=== PATIENT | female | born 1985 | race African-American/Black ===

== ENCOUNTER 2018-05-08 02:12 | Emergency (ER) | payer MEDICAID ==
[~2018-05-08] VITALS: Ht 162.6 cm; Wt 61.0 kg
[2018-05-08 03:59] LABS: CLARITY URINE TURBID (CLEAR); COLOR URINE RED (YELLOW); KETONES URINE NEGATIVE (NEGATIVE); LEUKOCYTE ESTERASE URINE 1+ (NEGATIVE); NITRITE URINE NEGATIVE (NEGATIVE); OCCULT BLOOD URINE 3+ (NEGATIVE); PROTEIN URINE 2+ (NEGATIVE); SPECIFIC GRAVITY URINE 1.021 (1.005-1.030); UROBILINOGEN URINE 0.2 E.U./dL (0.2-1.0)
[2018-05-08 05:34] LABS: BASOPHILS % 0.5 % (0.0-2.0); EOSINOPHILS % 0.6 % (0.0-5.0); HEMATOCRIT. 26.5 % (36.0-48.0); LYMPHOCYTES % 37.2 % (20.0-50.0); MEAN CORPUSCULAR HEMOGLOBIN 29.2 pg (28.0-32.0); MEAN CORPUSCULAR VOLUME 86.1 fL (81.0-99.0); MEAN PLATELET VOLUME 10.2 fl (7.4-10.4); MONOCYTES % 9.9 % (2.0-8.0); NEUTROPHILS % 51.8 % (40.0-76.0); PLATELET 133 x1000/uL (130-400); RED BLOOD CELL COUNT 3.08 mill/uL (4.2-5.4); RED CELL DISTRIBUTION WIDTH 12.7 % (11.6-14.6)
[2018-05-08 05:40] LABS: CHLORIDE 107 mEq/L (98-107)
[2018-05-08 05:52] LABS: B-HCG QUANTITATIVE < 1 mIU/mL (<3)
[2018-05-08 06:41] VITALS: BP 110/74
== END 2018-05-08 06:43 | disposition home or self-care (01) ==
LOC: ER 02:59
DX: N92.0 Excessive and frequent menstruation with regular cycle (principal); D64.9 Anemia, unspecified; G40.909 Epilepsy, unspecified, not intractable, without status epilepticus
CPT/HCPCS: 36415; 80048; 81003; 81025; 84702; 85025; 99284; Z7610

== ENCOUNTER 2018-10-13 06:53 | Emergency (ER) | payer MEDICAID ==
[~2018-10-13] VITALS: Ht 162.6 cm; Wt 64.0 kg
[2018-10-13] MEDS ORDERED: FAMOTIDINE 20MG/2ML VIAL IV STA (07:29)
[2018-10-13] MEDS ORDERED: ONDANSETRON HCL 4MG/2ML INJ IV STA (07:29)
[2018-10-13 08:34] LABS: CLARITY URINE CLOUDY (CLEAR); COLOR URINE YELLOW (YELLOW); KETONES URINE TRACE (NEGATIVE); LEUKOCYTE ESTERASE URINE 1+ (NEGATIVE); NITRITE URINE NEGATIVE (NEGATIVE); OCCULT BLOOD URINE 3+ (NEGATIVE); PROTEIN URINE NEGATIVE (NEGATIVE); SPECIFIC GRAVITY URINE 1.016 (1.005-1.030); UROBILINOGEN URINE 0.2 E.U./dL (0.2-1.0)
[2018-10-13 08:49] LABS: PLATELET 160 x1000/uL (130-400); RED BLOOD CELL COUNT 3.97 mill/uL (4.2-5.4)
[2018-10-13 08:55] LABS: CHLORIDE 105 mEq/L (98-107)
[2018-10-13 08:56] LABS: PROTHROMBIN TIME 10.2 sec (9.1-11.1)
[2018-10-13 09:00] LABS: BASOPHILS % 0.7 % (0.0-2.0); EOSINOPHILS % 0.4 % (0.0-5.0); HEMATOCRIT. 34.3 % (36.0-48.0); HEMOGLOBIN. 11.2 g/dL (12.0-16.0); LYMPHOCYTES % 42.4 % (20.0-50.0); MEAN CORPUSCULAR HEMOGLOBIN 28.2 pg (28.0-32.0); MEAN CORPUSCULAR VOLUME 86.5 fL (81.0-99.0); MEAN PLATELET VOLUME 10.1 fl (7.4-10.4); MONOCYTES % 6.3 % (2.0-8.0); NEUTROPHILS % 50.2 % (40.0-76.0); RED CELL DISTRIBUTION WIDTH 13.2 % (11.6-14.6)
[2018-10-13 10:31] VITALS: BP 134/91
[2018-10-13] MEDS ORDERED: QUETIAPINE FUMARATE 100MG TABLET PO STA (10:35)
[2018-10-13] MEDS ORDERED: PHENYTOIN SODIUM EXTENDED 100MG CAPSULE PO ONE (10:45)
== END 2018-10-13 10:48 | disposition home or self-care (01) ==
LOC: ER 06:53
DX: R10.31 Right lower quadrant pain (principal); K59.00 Constipation, unspecified; G40.909 Epilepsy, unspecified, not intractable, without status epilepticus; Q43.1 Hirschsprung's disease; F17.210 Nicotine dependence, cigarettes, uncomplicated; D72.819 Decreased white blood cell count, unspecified; Z93.3 Colostomy status; Z59.0 Homelessness
CPT/HCPCS: 36415; 74176; 80053; 80185; 81003; 81025; 83690; 85025; 85610; 96374; 96375; 99284; J2405; J3490

== ENCOUNTER 2018-11-08 05:55 | Emergency (ER) | payer MEDICAID ==
[~2018-11-08] VITALS: Ht 162.6 cm; Wt 68.0 kg
[2018-11-08 06:05] VITALS: BP 118/75
== END 2018-11-08 08:08 | disposition left against medical advice (07) ==
LOC: ER 05:55
DX: Z53.21 Procedure and treatment not carried out due to patient leaving prior to being seen by health care provider (principal)

== ENCOUNTER 2018-11-08 08:08 | Emergency (ER) | payer MEDICAID ==
[~2018-11-08] VITALS: Ht 162.6 cm; Wt 55.0 kg
[2018-11-08 09:20] LABS: BASOPHILS % 0.5 % (0.0-2.0); CHLORIDE 105 mEq/L (98-107); EOSINOPHILS % 0.2 % (0.0-5.0); HEMATOCRIT. 34.3 % (36.0-48.0); HEMOGLOBIN. 11.3 g/dL (12.0-16.0); LYMPHOCYTES % 36.5 % (20.0-50.0); MEAN CORPUSCULAR HEMOGLOBIN 28.4 pg (28.0-32.0); MEAN PLATELET VOLUME 9.8 fl (7.4-10.4); MONOCYTES % 6.6 % (2.0-8.0); NEUTROPHILS % 56.2 % (40.0-76.0); PLATELET 145 x1000/uL (130-400); RED BLOOD CELL COUNT 3.99 mill/uL (4.2-5.4); RED CELL DISTRIBUTION WIDTH 13.1 % (11.6-14.6)
[2018-11-08 09:23] LABS: ETHANOL BLOOD < 10 mg/dL
[2018-11-08 09:35] LABS: HCG SCREEN NEGATIVE
[2018-11-08 09:44] LABS: CLARITY URINE CLOUDY (CLEAR); COLOR URINE YELLOW (YELLOW); KETONES URINE NEGATIVE (NEGATIVE); LEUKOCYTE ESTERASE URINE 1+ (NEGATIVE); NITRITE URINE NEGATIVE (NEGATIVE); OCCULT BLOOD URINE 3+ (NEGATIVE); PROTEIN URINE NEGATIVE (NEGATIVE); SPECIFIC GRAVITY URINE 1.022 (1.005-1.030)
[2018-11-08] MEDS ORDERED: PHENYTOIN SODIUM EXTENDED 100MG CAPSULE PO ONE ×2 (10:15→12:31)
[2018-11-08 10:42] LABS: *AMPHETAMINES SCREEN URINE NEGATIVE (NEGATIVE); *BARBITURATES SCREEN URINE NEGATIVE (NEGATIVE); *BENZODIAZEPINES SCREEN URINE NEGATIVE (NEGATIVE)
[2018-11-08 10:43] LABS: *COCAINE SCREEN URINE NEGATIVE (NEGATIVE); METHADONE URINE SCREEN NEGATIVE (NEGATIVE); OPIATES URINE SCREEN NEGATIVE (NEGATIVE); PHENCYCLIDINE URINE SCREEN NEGATIVE (NEGATIVE)
[2018-11-08 10:47] LABS: CANNABINOID URINE SCREEN PRESUMTIVE POSITIVE (NEGATIVE)
[2018-11-08 12:37] VITALS: BP 119/80
== END 2018-11-08 15:17 | disposition home or self-care (01) ==
LOC: ER 08:08
DX: G40.909 Epilepsy, unspecified, not intractable, without status epilepticus (principal); N39.0 Urinary tract infection, site not specified; F20.9 Schizophrenia, unspecified
CPT/HCPCS: 36415; 80185; 80305; 80320; 84703; 93005; 99284; G0480

== ENCOUNTER 2018-11-23 06:31 | Emergency (ER) | payer MEDICAID ==
[~2018-11-23] VITALS: Ht 162.6 cm; Wt 68.2 kg
[2018-11-23 09:00] VITALS: BP 109/78
== END 2018-11-23 09:31 | disposition left against medical advice (07) ==
LOC: ER 06:31
DX: R42 Dizziness and giddiness (principal); Z53.21 Procedure and treatment not carried out due to patient leaving prior to being seen by health care provider

== ENCOUNTER 2018-11-24 23:57 | Emergency (ER) | payer MEDICAID ==
[~2018-11-24] VITALS: Ht 165.1 cm; Wt 59.0 kg
[2018-11-25] VITALS: BP 134/76
== END 2018-11-25 04:00 | disposition left against medical advice (07) ==
LOC: ER 23:57
DX: Z53.21 Procedure and treatment not carried out due to patient leaving prior to being seen by health care provider (principal)

== ENCOUNTER 2019-02-07 00:44 | Emergency (ER) | payer MEDICAID ==
[~2019-02-07] VITALS: Ht 165.1 cm; Wt 55.0 kg
[2019-02-07 04:02] LABS: CHLORIDE 108 mEq/L (98-107)
[2019-02-07 04:07] LABS: BASOPHILS % 0.5 % (0.0-2.0); EOSINOPHILS % 0.5 % (0.0-5.0); HEMATOCRIT. 28.3 % (36.0-48.0); HEMOGLOBIN. 9.7 g/dL (12.0-16.0); LYMPHOCYTES % 40.4 % (20.0-50.0); MEAN CORPUSCULAR HEMOGLOBIN 29.6 pg (28.0-32.0); MEAN CORPUSCULAR VOLUME 86.1 fL (81.0-99.0); MEAN PLATELET VOLUME 10.7 fl (7.4-10.4); MONOCYTES % 7.5 % (2.0-8.0); NEUTROPHILS % 51.1 % (40.0-76.0); PLATELET 160 x1000/uL (130-400); RED BLOOD CELL COUNT 3.28 mill/uL (4.2-5.4); RED CELL DISTRIBUTION WIDTH 12.6 % (11.6-14.6)
[2019-02-07] MEDS ORDERED: PHENYTOIN SODIUM 1,000 MG in SODIUM CHLORIDE 0.9% 100 ML IV ONE (04:30)
[2019-02-07] MEDS ORDERED: PHENYTOIN SODIUM EXTENDED 100MG CAPSULE PO ONE (04:30)
[2019-02-07 06:50] VITALS: BP 118/70
== END 2019-02-07 07:07 | disposition home or self-care (01) ==
LOC: ER 00:44
DX: Z76.0 Encounter for issue of repeat prescription (principal); G40.909 Epilepsy, unspecified, not intractable, without status epilepticus; R03.0 Elevated blood-pressure reading, without diagnosis of hypertension; L02.91 Cutaneous abscess, unspecified
CPT/HCPCS: 36415; 80048; 80185; 81025; 85025; 96365; 99283; J1165; J7050; Z7610

== ENCOUNTER 2019-02-11 14:19 | Emergency (ER) | payer MEDICAID ==
[~2019-02-11] VITALS: Ht 162.6 cm; Wt 61.0 kg
[2019-02-11] MEDS ORDERED: SODIUM CHLORIDE 0.9% 1,000 ML IV ONE (16:50)
[2019-02-11 18:15] LABS: BASOPHILS % 0.7 % (0.0-2.0); EOSINOPHILS % 0.5 % (0.0-5.0); HEMATOCRIT. 30.5 % (36.0-48.0); HEMOGLOBIN. 10.3 g/dL (12.0-16.0); LYMPHOCYTES % 46.3 % (20.0-50.0); MEAN CORPUSCULAR HEMOGLOBIN 29.3 pg (28.0-32.0); MEAN CORPUSCULAR VOLUME 86.6 fL (81.0-99.0); MEAN PLATELET VOLUME 10.1 fl (7.4-10.4); MONOCYTES % 7.7 % (2.0-8.0); NEUTROPHILS % 44.8 % (40.0-76.0); PLATELET 188 x1000/uL (130-400); RED BLOOD CELL COUNT 3.52 mill/uL (4.2-5.4); RED CELL DISTRIBUTION WIDTH 12.6 % (11.6-14.6)
[2019-02-11 18:20] LABS: CHLORIDE 105 mEq/L (98-107)
[2019-02-11 18:21] LABS: PROTHROMBIN TIME 9.9 sec (9.6-11.0)
[2019-02-11 18:30] LABS: B-HCG QUANTITATIVE < 1 mIU/mL (<3)
[2019-02-11 18:33] LABS: HCG SCREEN NEGATIVE
[2019-02-11 22:50] VITALS: BP 118/80
[2019-02-12 00:22] LABS: CLARITY URINE TURBID (CLEAR); KETONES URINE 1+ (NEGATIVE); LEUKOCYTE ESTERASE URINE 2+ (NEGATIVE); NITRITE URINE NEGATIVE (NEGATIVE); OCCULT BLOOD URINE 3+ (NEGATIVE); PROTEIN URINE 2+ (NEGATIVE); SPECIFIC GRAVITY URINE 1.026 (1.005-1.030)
[2019-02-12 00:43] LABS: COLOR URINE BLOODY (YELLOW)
== END 2019-02-12 02:18 | disposition home or self-care (01) ==
LOC: ER 14:19
DX: N93.9 Abnormal uterine and vaginal bleeding, unspecified (principal); D64.9 Anemia, unspecified; G40.909 Epilepsy, unspecified, not intractable, without status epilepticus; F20.9 Schizophrenia, unspecified; Z76.0 Encounter for issue of repeat prescription; Z93.3 Colostomy status; Z59.0 Homelessness
CPT/HCPCS: 36415; 76830; 76856; 80053; 81003; 81025; 84702; 84703; 85025; 85610; 86850; 86900; 86901; 99284; J7030; Z7610

== ENCOUNTER 2019-02-18 11:54 | Emergency (ER) | payer MEDICAID ==
[~2019-02-18] VITALS: Ht 162.6 cm; Wt 60.0 kg
[2019-02-18] MEDS ORDERED: SODIUM CHLORIDE 0.9% 1,000 ML IV ONE (14:05)
[2019-02-18] MEDS ORDERED: KETOROLAC 30MG/ML VIAL IV ONE (14:15)
[2019-02-18] MEDS ORDERED: AZITHROMYCIN 500 MG TABLET PO ONE (14:15)
[2019-02-18] MEDS ORDERED: CEFTRIAXONE 1 G PREMIX 50 ML IV ONE (14:15)
[2019-02-18 14:30] LABS: BASOPHILS % 0.6 % (0.0-2.0); EOSINOPHILS % 0.2 % (0.0-5.0); HEMATOCRIT. 28.8 % (36.0-48.0); HEMOGLOBIN. 9.6 g/dL (12.0-16.0); LYMPHOCYTES % 43.6 % (20.0-50.0); MEAN CORPUSCULAR HEMOGLOBIN 29.2 pg (28.0-32.0); MEAN CORPUSCULAR VOLUME 87.3 fL (81.0-99.0); MEAN PLATELET VOLUME 9.9 fl (7.4-10.4); NEUTROPHILS % 48.6 % (40.0-76.0); PLATELET 147 x1000/uL (130-400); RED CELL DISTRIBUTION WIDTH 12.8 % (11.6-14.6)
[2019-02-18 14:33] LABS: CLARITY URINE CLOUDY (CLEAR); COLOR URINE YELLOW (YELLOW); KETONES URINE NEGATIVE (NEGATIVE); LEUKOCYTE ESTERASE URINE TRACE (NEGATIVE); NITRITE URINE NEGATIVE (NEGATIVE); OCCULT BLOOD URINE 2+ (NEGATIVE); PROTEIN URINE NEGATIVE (NEGATIVE); SPECIFIC GRAVITY URINE 1.026 (1.005-1.030)
[2019-02-18 14:41] LABS: CHLORIDE 108 mEq/L (98-107)
[2019-02-18 20:44] VITALS: BP 124/90
[2019-02-18] MEDS ORDERED: ACETAMINOPHEN 500MG TABLET PO ONE (21:15)
[2019-02-20 04:08] LABS: CHLAMYDIA TRACHOMATIS NAA Negative (Negative); NEISSERIA GONORRHOEAE NAA Negative (Negative)
== END 2019-02-18 21:51 | disposition home or self-care (01) ==
LOC: ER 11:54
DX: N39.0 Urinary tract infection, site not specified (principal); N89.8 Other specified noninflammatory disorders of vagina; R10.30 Lower abdominal pain, unspecified; F17.200 Nicotine dependence, unspecified, uncomplicated; F20.9 Schizophrenia, unspecified; Z91.018 Allergy to other foods
CPT/HCPCS: 36415; 76830; 76856; 80053; 80185; 81003; 81025; 83690; 85025; 87491; 87591; 96374; 96375; 99284; J0696; J1885; J7030

== ENCOUNTER 2019-03-29 17:44 | Emergency (ER) | payer MEDICAID ==
[~2019-03-29] VITALS: Ht 165.1 cm; Wt 45.0 kg
[2019-03-29] MEDS ORDERED: QUETIAPINE FUMARATE 50MG TABLET PO SCH (18:45)
[2019-03-29] MEDS ORDERED: PHENYTOIN SODIUM EXTENDED 100MG CAPSULE PO ONE ×2 (18:45→19:00)
[2019-03-29 19:52] VITALS: BP 122/88
== END 2019-03-29 19:54 | disposition home or self-care (01) ==
LOC: ER 18:02
DX: F15.10 Other stimulant abuse, uncomplicated (principal); G40.909 Epilepsy, unspecified, not intractable, without status epilepticus; F31.9 Bipolar disorder, unspecified; F20.9 Schizophrenia, unspecified; Z59.0 Homelessness; Z91.018 Allergy to other foods
CPT/HCPCS: 99283

== ENCOUNTER 2019-03-30 23:16 | Emergency (ER) | payer MEDICAID ==
[~2019-03-30] VITALS: Ht 162.6 cm; Wt 54.0 kg
[2019-03-31] MEDS ORDERED: MORPHINE SULFATE 4 MG/ML CPJ (NOT FOR IM USE) IV ONE (01:15)
[2019-03-31] MEDS ORDERED: ONDANSETRON HCL 4MG/2ML INJ IV ONE (01:15)
[2019-03-31 01:21] LABS: CLARITY URINE CLEAR (CLEAR); COLOR URINE YELLOW (YELLOW); KETONES URINE NEGATIVE (NEGATIVE); LEUKOCYTE ESTERASE URINE NEGATIVE (NEGATIVE); NITRITE URINE NEGATIVE (NEGATIVE); OCCULT BLOOD URINE 1+ (NEGATIVE); PROTEIN URINE NEGATIVE (NEGATIVE)
[2019-03-31 01:26] LABS: BASOPHILS % 0.7 % (0.0-2.0); CHLORIDE 104 mEq/L (98-107); EOSINOPHILS % 0.9 % (0.0-5.0); HEMATOCRIT. 30.7 % (36.0-48.0); HEMOGLOBIN. 10.3 g/dL (12.0-16.0); LYMPHOCYTES % 54.6 % (20.0-50.0); MEAN CORPUSCULAR HEMOGLOBIN 29.2 pg (28.0-32.0); MEAN PLATELET VOLUME 10.6 fl (7.4-10.4); MONOCYTES % 7.1 % (2.0-8.0); NEUTROPHILS % 36.7 % (40.0-76.0); PLATELET 129 x1000/uL (130-400); RED BLOOD CELL COUNT 3.53 mill/uL (4.2-5.4); RED CELL DISTRIBUTION WIDTH 12.8 % (11.6-14.6)
[2019-03-31 01:27] LABS: INR 0.9; PROTHROMBIN TIME 9.7 sec (9.6-11.0)
[2019-03-31] MEDS ORDERED: MAGNESIUM HYDROXIDE 400MG/5ML 30ML UDC PO ONE (05:30)
[2019-03-31 17:45] VITALS: BP 120/82
== END 2019-03-31 18:19 | disposition home or self-care (01) ==
LOC: ER 23:16
DX: K59.00 Constipation, unspecified (principal); N93.9 Abnormal uterine and vaginal bleeding, unspecified; G40.909 Epilepsy, unspecified, not intractable, without status epilepticus; F31.9 Bipolar disorder, unspecified; F17.210 Nicotine dependence, cigarettes, uncomplicated; Z90.49 Acquired absence of other specified parts of digestive tract; Z59.0 Homelessness
CPT/HCPCS: 36415; 74176; 80053; 81003; 81025; 85025; 85610; 96374; 96375; 99284; J2270; J2405

== ENCOUNTER 2019-04-01 06:49 | Emergency (ER) | payer MEDICAID ==
[~2019-04-01] VITALS: Ht 170.2 cm; Wt 55.0 kg
[2019-04-01] MEDS ORDERED: KETOROLAC 30MG/ML VIAL IV ONE (09:15)
[2019-04-01 14:10] VITALS: BP 115/78
== END 2019-04-01 14:20 | disposition home or self-care (01) ==
LOC: ER 06:49
DX: N93.9 Abnormal uterine and vaginal bleeding, unspecified (principal); M79.674 Pain in right toe(s); F20.9 Schizophrenia, unspecified; F31.9 Bipolar disorder, unspecified; Z91.018 Allergy to other foods
CPT/HCPCS: 73660; 76830; 76856; 96365; 99284; J1885

== ENCOUNTER 2019-04-12 20:25 | Emergency (ER) | payer MEDICAID ==
[~2019-04-12] VITALS: Ht 160 cm; Wt 55.0 kg
[2019-04-12 21:32] LABS: HCG SCREEN NEGATIVE
[2019-04-12] MEDS ORDERED: PHENYTOIN SODIUM 1,000 MG in SODIUM CHLORIDE 0.9% 100 ML IV ONE (21:45)
[2019-04-12 23:18] VITALS: BP 113/72
== END 2019-04-12 23:21 | disposition home or self-care (01) ==
LOC: ER 20:25
DX: G40.909 Epilepsy, unspecified, not intractable, without status epilepticus (principal); R89.2 Abnormal level of other drugs, medicaments and biological substances in specimens from other organs, systems and tissues; F31.9 Bipolar disorder, unspecified; I10 Essential (primary) hypertension; Z01.818 Encounter for other preprocedural examination; Z91.018 Allergy to other foods
CPT/HCPCS: 36415; 80185; 84703; 96365; 99283; J1165; J7050

== ENCOUNTER 2019-05-23 15:38 | Emergency (ER) | payer MEDICAID ==
[~2019-05-23] VITALS: Ht 167.6 cm; Wt 59.0 kg
[2019-05-23] MEDS ORDERED: SODIUM CHLORIDE 0.9% 1,000 ML IV ONE (16:12)
[2019-05-23] MEDS ORDERED: TETANUS, DIPHTHERIA, PERTUSSIS VAC/PF 0.5ML (>7YR OLD) IM ONE (16:15)
[2019-05-23] MEDS ORDERED: BACITRACIN ZINC OINT UDPKT TOP ONE (16:15)
[2019-05-23 16:38] LABS: BASOPHILS % 0.4 % (0.0-2.0); EOSINOPHILS % 0.4 % (0.0-5.0); HEMATOCRIT. 31.1 % (36.0-48.0); HEMOGLOBIN. 10.3 g/dL (12.0-16.0); LYMPHOCYTES % 35.2 % (20.0-50.0); MEAN CORPUSCULAR HEMOGLOBIN 28.5 pg (28.0-32.0); MEAN CORPUSCULAR VOLUME 85.8 fL (81.0-99.0); MEAN PLATELET VOLUME 10.6 fl (7.4-10.4); PLATELET 130 x1000/uL (130-400); RED BLOOD CELL COUNT 3.62 mill/uL (4.2-5.4); RED CELL DISTRIBUTION WIDTH 13.4 % (11.6-14.6)
[2019-05-23 16:40] LABS: CHLORIDE 104 mEq/L (98-107)
[2019-05-23 16:41] LABS: PARTIAL THROMBOPLASTIN TIME 23.8 sec (23.4-31.0)
[2019-05-23 16:45] LABS: HCG SCREEN NEGATIVE
[2019-05-23] MEDS ORDERED: BACITRACIN 15GM TUBE TOP SCH (17:00)
[2019-05-23] MEDS ORDERED: PROPOFOL 200MG/20ML VIAL IV ONE (18:45)
[2019-05-23] MEDS ORDERED: FENTANYL CITRATE/PF 50MCG/ML 2ML VIAL IV ONE (18:45)
[2019-05-23 22:19] LABS: CLARITY URINE CLOUDY (CLEAR); COLOR URINE YELLOW (YELLOW); KETONES URINE 2+ (NEGATIVE); LEUKOCYTE ESTERASE URINE NEGATIVE (NEGATIVE); NITRITE URINE NEGATIVE (NEGATIVE); OCCULT BLOOD URINE NEGATIVE (NEGATIVE); PH URINE 6.5 (4.5-8.0); PROTEIN URINE NEGATIVE (NEGATIVE); SPECIFIC GRAVITY URINE 1.026 (1.005-1.030)
[2019-05-23] MEDS ORDERED: MORPHINE SULFATE 10 MG/ML CPJ IV ONE (22:45)
[2019-05-23] MEDS ORDERED: ONDANSETRON HCL 4MG/2ML INJ IV ONE (22:45)
[2019-05-24 07:30] VITALS: BP 130/82
== END 2019-05-24 09:33 | disposition home or self-care (01) ==
LOC: ER 15:38
DX: S52.502A Unspecified fracture of the lower end of left radius, initial encounter for closed fracture (principal); S00.211A Abrasion of right eyelid and periocular area, initial encounter; S80.811A Abrasion, right lower leg, initial encounter; S80.212A Abrasion, left knee, initial encounter; R55 Syncope and collapse; I10 Essential (primary) hypertension; Z59.0 Homelessness; Z91.018 Allergy to other foods; V89.2XXA Person injured in unspecified motor-vehicle accident, traffic, initial encounter; Y93.89 Activity, other specified; Y92.89 Other specified places as the place of occurrence of the external cause; Y99.8 Other external cause status
CPT/HCPCS: 25565; 36415; 70450; 71045; 72125; 72170; 73090; 80053; 81003; 81025; 83690; 84703; 85025; 85610; 85730; 86850; 86900; 86901; 90471; 90715; 96374; 96375; 99152; 99285; J2270; J2405; J2704; J3010; J7030

== ENCOUNTER 2019-05-28 12:23 | Emergency (ER) | payer MEDICAID ==
[~2019-05-28] VITALS: Ht 162.6 cm; Wt 59.0 kg
[2019-05-28] MEDS ORDERED: MORPHINE SULFATE 4 MG/ML CPJ (NOT FOR IM USE) IV STA (13:01)
[2019-05-28 14:20] LABS: BASOPHILS % 0.6 % (0.0-2.0); EOSINOPHILS % 0.7 % (0.0-5.0); HEMATOCRIT. 28.9 % (36.0-48.0); HEMOGLOBIN. 9.7 g/dL (12.0-16.0); LYMPHOCYTES % 24.9 % (20.0-50.0); MEAN CORPUSCULAR HEMOGLOBIN 28.9 pg (28.0-32.0); MEAN CORPUSCULAR VOLUME 85.6 fL (81.0-99.0); MEAN PLATELET VOLUME 10.4 fl (7.4-10.4); MONOCYTES % 8.5 % (2.0-8.0); NEUTROPHILS % 65.3 % (40.0-76.0); PLATELET 150 x1000/uL (130-400); RED BLOOD CELL COUNT 3.37 mill/uL (4.2-5.4); RED CELL DISTRIBUTION WIDTH 13.5 % (11.6-14.6)
[2019-05-28 14:26] LABS: CHLORIDE 107 mEq/L (98-107)
[2019-05-28 14:27] LABS: PROTHROMBIN TIME 9.9 sec (9.6-11.0)
[2019-05-28 14:44] LABS: HCG SCREEN NEGATIVE
[2019-05-28 15:23] LABS: CLARITY URINE CLEAR (CLEAR); COLOR URINE DARK YELLOW (YELLOW); KETONES URINE TRACE (NEGATIVE); LEUKOCYTE ESTERASE URINE TRACE (NEGATIVE); NITRITE URINE NEGATIVE (NEGATIVE); OCCULT BLOOD URINE NEGATIVE (NEGATIVE); PH URINE 5.5 (4.5-8.0); PROTEIN URINE NEGATIVE (NEGATIVE); SPECIFIC GRAVITY URINE 1.026 (1.005-1.030)
[2019-05-28 20:20] VITALS: BP 122/78
== END 2019-05-28 21:19 | disposition left against medical advice (07) ==
LOC: ER 12:59
DX: R10.31 Right lower quadrant pain (principal); N70.11 Chronic salpingitis; I10 Essential (primary) hypertension; G40.909 Epilepsy, unspecified, not intractable, without status epilepticus; F31.9 Bipolar disorder, unspecified; Z59.0 Homelessness; Z91.018 Allergy to other foods
CPT/HCPCS: 36415; 74176; 76856; 80053; 81003; 83690; 84703; 85025; 85610; 96374; 99284; J2270; Z7610

== ENCOUNTER 2019-06-07 21:03 | Emergency (ER) | payer MEDICAID ==
[~2019-06-07] VITALS: Ht 167.6 cm; Wt 65.0 kg
[2019-06-07] MEDS ORDERED: ACETAMINOPHEN 325MG TABLET PO STA (23:36)
[2019-06-07] MEDS ORDERED: ONDANSETRON 4MG ODT PO STA (23:36)
[2019-06-08 00:13] LABS: CLARITY URINE TURBID (CLEAR); COLOR URINE YELLOW (YELLOW); KETONES URINE NEGATIVE (NEGATIVE); LEUKOCYTE ESTERASE URINE NEGATIVE (NEGATIVE); NITRITE URINE NEGATIVE (NEGATIVE); OCCULT BLOOD URINE NEGATIVE (NEGATIVE); PH URINE 6.5 (4.5-8.0); PROTEIN URINE NEGATIVE (NEGATIVE)
[2019-06-08] MEDS ORDERED: MORPHINE SULFATE 2 MG/ML CPJ (NOT FOR IM USE) IV ONE ×2 (00:30→03:00)
[2019-06-08 00:35] LABS: BASOPHILS % 0.8 % (0.0-2.0); EOSINOPHILS % 0.5 % (0.0-5.0); HEMATOCRIT. 28.9 % (36.0-48.0); HEMOGLOBIN. 9.7 g/dL (12.0-16.0); LYMPHOCYTES % 38.9 % (20.0-50.0); MEAN CORPUSCULAR HEMOGLOBIN 28.9 pg (28.0-32.0); MEAN CORPUSCULAR VOLUME 85.6 fL (81.0-99.0); MEAN PLATELET VOLUME 10.1 fl (7.4-10.4); MONOCYTES % 7.1 % (2.0-8.0); NEUTROPHILS % 52.7 % (40.0-76.0); PLATELET 197 x1000/uL (130-400); RED BLOOD CELL COUNT 3.37 mill/uL (4.2-5.4)
[2019-06-08 00:44] LABS: CHLORIDE 105 mEq/L (98-107)
[2019-06-08] MEDS ORDERED: CEFTRIAXONE 1 G PREMIX 50 ML IV ONE (01:45)
[2019-06-08] MEDS ORDERED: ONDANSETRON HCL 4MG/2ML INJ IV ONE (03:00)
[2019-06-08] MEDS ORDERED: IOHEXOL-300 100 ML BOTTLE ONE (04:19)
[2019-06-08 07:15] VITALS: BP 110/64
== END 2019-06-08 09:30 | disposition home or self-care (01) ==
LOC: ER 21:03
DX: R10.31 Right lower quadrant pain (principal); G40.909 Epilepsy, unspecified, not intractable, without status epilepticus; Z59.0 Homelessness; Z91.018 Allergy to other foods
CPT/HCPCS: 36415; 74177; 76856; 80053; 81003; 81025; 83690; 85025; 96365; 96375; 96376; 99284; J0696; J2270; J2405; Q0162; Q9967

== ENCOUNTER 2019-06-25 21:19 | Emergency (ER) | payer MEDICAID ==
[~2019-06-25] VITALS: Ht 170.2 cm; Wt 66.0 kg
[2019-06-25 21:26] VITALS: BP 116/74
== END 2019-06-26 01:13 | disposition left against medical advice (07) ==
LOC: ER 21:19
DX: R11.0 Nausea (principal); Z53.21 Procedure and treatment not carried out due to patient leaving prior to being seen by health care provider

== ENCOUNTER 2019-06-27 21:37 | Emergency (ER) | payer MEDICAID ==
[~2019-06-27] VITALS: Ht 162.6 cm; Wt 66.0 kg
[2019-06-27 23:05] VITALS: BP 134/75
[2019-06-27 23:44] LABS: BASOPHILS % 0.4 % (0.0-2.0); EOSINOPHILS % 0.2 % (0.0-5.0); HEMATOCRIT. 30.6 % (36.0-48.0); HEMOGLOBIN. 10.2 g/dL (12.0-16.0); MEAN CORPUSCULAR HEMOGLOBIN 28.8 pg (28.0-32.0); MEAN CORPUSCULAR VOLUME 86.2 fL (81.0-99.0); MONOCYTES % 5.6 % (2.0-8.0); NEUTROPHILS % 67.8 % (40.0-76.0); PLATELET 123 x1000/uL (130-400); RED BLOOD CELL COUNT 3.55 mill/uL (4.2-5.4); RED CELL DISTRIBUTION WIDTH 13.3 % (11.6-14.6)
[2019-06-27 23:46] LABS: CHLORIDE 107 mEq/L (98-107)
[2019-06-28] MEDS ORDERED: POTASSIUM CHLORIDE 20MEQ TABLET SR PO NR (00:30)
[2019-06-28] MEDS ORDERED: PHENYTOIN SODIUM EXTENDED 100MG CAPSULE PO NR (00:30)
== END 2019-06-28 00:35 | disposition home or self-care (01) ==
LOC: ER 21:37
DX: G40.909 Epilepsy, unspecified, not intractable, without status epilepticus (principal); F31.9 Bipolar disorder, unspecified; Z91.018 Allergy to other foods; Z98.890 Other specified postprocedural states
CPT/HCPCS: 36415; 80053; 80185; 85025; 99283; Z7610

== ENCOUNTER 2019-07-12 08:01 | Emergency (ER) | payer MEDICAID ==
[~2019-07-12] VITALS: Ht 165.1 cm; Wt 63.0 kg
[2019-07-12 09:35] LABS: BASOPHILS % 0.5 % (0.0-2.0); EOSINOPHILS % 0.3 % (0.0-5.0); HEMATOCRIT. 32.7 % (36.0-48.0); HEMOGLOBIN. 10.9 g/dL (12.0-16.0); LYMPHOCYTES % 33.8 % (20.0-50.0); MEAN CORPUSCULAR HEMOGLOBIN 28.5 pg (28.0-32.0); MEAN CORPUSCULAR VOLUME 85.3 fL (81.0-99.0); MEAN PLATELET VOLUME 9.9 fl (7.4-10.4); MONOCYTES % 5.8 % (2.0-8.0); NEUTROPHILS % 59.6 % (40.0-76.0); PLATELET 196 x1000/uL (130-400); RED BLOOD CELL COUNT 3.83 mill/uL (4.2-5.4); RED CELL DISTRIBUTION WIDTH 13.5 % (11.6-14.6)
[2019-07-12 09:39] LABS: CHLORIDE 106 mEq/L (98-107)
[2019-07-12 09:52] LABS: B-HCG QUANTITATIVE < 1 mIU/mL (<3)
[2019-07-12 14:29] VITALS: BP 117/64
== END 2019-07-12 16:52 | disposition home or self-care (01) ==
LOC: ER 08:01
DX: N93.9 Abnormal uterine and vaginal bleeding, unspecified (principal); R10.9 Unspecified abdominal pain; Z59.0 Homelessness; Z91.018 Allergy to other foods
CPT/HCPCS: 36415; 81025; 84702; 86850; 86900; 99283

== ENCOUNTER 2019-07-13 08:44 | Emergency (ER) | payer MEDICAID ==
[~2019-07-13] VITALS: Ht 165.1 cm; Wt 60.0 kg
[2019-07-13 10:48] VITALS: BP 125/78
== END 2019-07-13 10:50 | disposition home or self-care (01) ==
LOC: ER 08:44
DX: Z59.0 Homelessness (principal); F31.9 Bipolar disorder, unspecified; R56.9 Unspecified convulsions; Z91.018 Allergy to other foods
CPT/HCPCS: 99283

== ENCOUNTER 2019-07-19 16:35 | Emergency (ER) | payer MEDICAID ==
[~2019-07-19] VITALS: Ht 167.6 cm; Wt 70.0 kg
[2019-07-19] MEDS ORDERED: SODIUM CHLORIDE 0.9% 1,000 ML IV ONE (17:32)
[2019-07-19] MEDS ORDERED: FAMOTIDINE 20MG/2ML VIAL IV STA (17:32)
[2019-07-19 18:11] LABS: BASOPHILS % 0.5 % (0.0-2.0); EOSINOPHILS % 0.6 % (0.0-5.0); HEMATOCRIT. 26.8 % (36.0-48.0); HEMOGLOBIN. 8.9 g/dL (12.0-16.0); LYMPHOCYTES % 43.9 % (20.0-50.0); MEAN CORPUSCULAR HEMOGLOBIN 28.7 pg (28.0-32.0); MEAN CORPUSCULAR VOLUME 85.9 fL (81.0-99.0); MEAN PLATELET VOLUME 9.1 fl (7.4-10.4); MONOCYTES % 7.8 % (2.0-8.0); NEUTROPHILS % 47.2 % (40.0-76.0); PLATELET 149 x1000/uL (130-400); RED BLOOD CELL COUNT 3.12 mill/uL (4.2-5.4); RED CELL DISTRIBUTION WIDTH 13.5 % (11.6-14.6)
[2019-07-19 18:17] LABS: CHLORIDE 108 mEq/L (98-107); INR 0.9; PROTHROMBIN TIME 9.4 sec (9.6-11.0)
[2019-07-19 18:21] LABS: ETHANOL BLOOD 34 mg/dL
[2019-07-19 18:23] LABS: HCG SCREEN NEGATIVE
[2019-07-19 19:08] LABS: CLARITY URINE CLEAR (CLEAR); COLOR URINE YELLOW (YELLOW); KETONES URINE NEGATIVE (NEGATIVE); LEUKOCYTE ESTERASE URINE NEGATIVE (NEGATIVE); NITRITE URINE NEGATIVE (NEGATIVE); OCCULT BLOOD URINE NEGATIVE (NEGATIVE); PROTEIN URINE NEGATIVE (NEGATIVE); SPECIFIC GRAVITY URINE 1.003 (1.005-1.030); UROBILINOGEN URINE 0.2 E.U./dL (0.2-1.0)
[2019-07-19] MEDS ORDERED: KETOROLAC 30MG/ML VIAL IV ONE (19:15)
[2019-07-19] MEDS ORDERED: ONDANSETRON HCL 4MG/2ML INJ IV ONE (19:15)
[2019-07-19 19:31] LABS: *AMPHETAMINES SCREEN URINE NEGATIVE (NEGATIVE); *BARBITURATES SCREEN URINE NEGATIVE (NEGATIVE); *BENZODIAZEPINES SCREEN URINE NEGATIVE (NEGATIVE)
[2019-07-19 19:32] LABS: *COCAINE SCREEN URINE NEGATIVE (NEGATIVE); METHADONE URINE SCREEN NEGATIVE (NEGATIVE); PHENCYCLIDINE URINE SCREEN NEGATIVE (NEGATIVE)
[2019-07-19 19:33] LABS: CANNABINOID URINE SCREEN PRESUMTIVE POSITIVE (NEGATIVE); OPIATES URINE SCREEN PRESUMTIVE POSITIVE (NEGATIVE)
[2019-07-19 20:13] VITALS: BP 136/82
== END 2019-07-19 21:23 | disposition home or self-care (01) ==
LOC: ER 16:35
DX: K59.00 Constipation, unspecified (principal); R10.84 Generalized abdominal pain; F31.9 Bipolar disorder, unspecified; Z87.440 Personal history of urinary (tract) infections; Z91.018 Allergy to other foods
CPT/HCPCS: 36415; 74021; 80053; 80305; 80320; 81003; 81025; 83690; 84703; 85025; 85610; 96374; 96375; 99284; J1885; J2405; J3490; J7030; G0480

== ENCOUNTER 2019-09-02 13:20 | Emergency (ER) | payer MEDICAID ==
[~2019-09-02] VITALS: Ht 165.1 cm; Wt 65.0 kg
[2019-09-02] MEDS ORDERED: KETOROLAC 30MG/ML VIAL IV STA (14:20)
[2019-09-02] MEDS ORDERED: SODIUM CHLORIDE 0.9% 1,000 ML IV ONE (14:20)
[2019-09-02 15:38] LABS: BASOPHILS % 0.2 % (0.0-2.0); HEMATOCRIT. 33.1 % (36.0-48.0); LYMPHOCYTES % 11.5 % (20.0-50.0); MEAN CORPUSCULAR HEMOGLOBIN 28.4 pg (28.0-32.0); MEAN CORPUSCULAR VOLUME 85.8 fL (81.0-99.0); MEAN PLATELET VOLUME 10.4 fl (7.4-10.4); MONOCYTES % 2.2 % (2.0-8.0); NEUTROPHILS % 86.1 % (40.0-76.0); PLATELET 172 x1000/uL (130-400); RED BLOOD CELL COUNT 3.85 mill/uL (4.2-5.4)
[2019-09-02 15:40] LABS: PROTHROMBIN TIME 9.8 sec (9.6-11.0)
[2019-09-02 15:41] LABS: CHLORIDE 102 mEq/L (98-107)
[2019-09-02 15:44] LABS: CLARITY URINE CLEAR (CLEAR); COLOR URINE YELLOW (YELLOW); KETONES URINE 1+ (NEGATIVE); LEUKOCYTE ESTERASE URINE NEGATIVE (NEGATIVE); NITRITE URINE NEGATIVE (NEGATIVE); OCCULT BLOOD URINE 3+ (NEGATIVE); PH URINE 6.5 (4.5-8.0); PROTEIN URINE NEGATIVE (NEGATIVE); SPECIFIC GRAVITY URINE 1.012 (1.005-1.030); UROBILINOGEN URINE 0.2 E.U./dL (0.2-1.0)
[2019-09-02 15:51] LABS: C REACTIVE PROTEIN QUANT 0.3 mg/L (0.0-3.0)
[2019-09-02 15:55] LABS: HCG SCREEN NEGATIVE
[2019-09-02 18:00] VITALS: BP 123/69
== END 2019-09-02 18:00 | disposition left against medical advice (07) ==
LOC: ER 13:20
DX: M25.561 Pain in right knee (principal); Z87.440 Personal history of urinary (tract) infections; F31.9 Bipolar disorder, unspecified; Z98.890 Other specified postprocedural states; Z91.018 Allergy to other foods
CPT/HCPCS: 36415; 73562; 80053; 81003; 81025; 83605; 84550; 84703; 85025; 85610; 85651; 86140; 93971; 96374; 99284; J1885; J7030

== ENCOUNTER 2019-09-07 12:01 | Emergency (ER) | payer MEDICAID ==
[~2019-09-07] VITALS: Ht 165.1 cm; Wt 60.0 kg
[2019-09-07 13:03] LABS: BASOPHILS % 0.5 % (0.0-2.0); EOSINOPHILS % 0.3 % (0.0-5.0); HEMATOCRIT. 29.8 % (36.0-48.0); HEMOGLOBIN. 9.7 g/dL (12.0-16.0); LYMPHOCYTES % 42.1 % (20.0-50.0); MEAN CORPUSCULAR HEMOGLOBIN 27.9 pg (28.0-32.0); MEAN CORPUSCULAR VOLUME 85.5 fL (81.0-99.0); MEAN PLATELET VOLUME 9.9 fl (7.4-10.4); MONOCYTES % 7.8 % (2.0-8.0); NEUTROPHILS % 49.3 % (40.0-76.0); PLATELET 162 x1000/uL (130-400); RED BLOOD CELL COUNT 3.48 mill/uL (4.2-5.4); RED CELL DISTRIBUTION WIDTH 13.9 % (11.6-14.6)
[2019-09-07 13:09] LABS: CLARITY URINE CLEAR (CLEAR); COLOR URINE YELLOW (YELLOW); KETONES URINE NEGATIVE (NEGATIVE); LEUKOCYTE ESTERASE URINE NEGATIVE (NEGATIVE); NITRITE URINE NEGATIVE (NEGATIVE); OCCULT BLOOD URINE 3+ (NEGATIVE); PROTEIN URINE NEGATIVE (NEGATIVE); SPECIFIC GRAVITY URINE 1.024 (1.005-1.030); UROBILINOGEN URINE 0.2 E.U./dL (0.2-1.0)
[2019-09-07 13:11] LABS: CHLORIDE 106 mEq/L (98-107)
[2019-09-07 13:21] LABS: B-HCG QUANTITATIVE < 1 mIU/mL (<3)
[2019-09-07 13:32] VITALS: BP 113/63
== END 2019-09-07 14:32 | disposition home or self-care (01) ==
LOC: ER 12:01
DX: R10.9 Unspecified abdominal pain (principal); N93.8 Other specified abnormal uterine and vaginal bleeding; F31.9 Bipolar disorder, unspecified; R56.9 Unspecified convulsions; Z91.018 Allergy to other foods
CPT/HCPCS: 36415; 80053; 81003; 81025; 84702; 85025; 86850; 86900; 99283

== ENCOUNTER 2020-03-04 11:25 | Emergency (ER) | payer MEDICAID ==
[~2020-03-04] VITALS: Ht 167.6 cm; Wt 55.0 kg
[2020-03-04] MEDS ORDERED: KETOROLAC 30MG/ML VIAL IM ONE (12:00)
[2020-03-04 12:45] VITALS: BP 125/86
== END 2020-03-04 13:15 | disposition home or self-care (01) ==
LOC: ER 11:35
DX: M25.462 Effusion, left knee (principal); F31.9 Bipolar disorder, unspecified; Z87.440 Personal history of urinary (tract) infections; Z91.018 Allergy to other foods
CPT/HCPCS: 96372; 99283; J1885

== ENCOUNTER 2020-03-24 16:45 | Emergency (ER) | payer MEDICAID ==
[~2020-03-24] VITALS: Ht 160 cm; Wt 63.0 kg
[2020-03-24] MEDS ORDERED: SODIUM CHLORIDE 0.9% 1,000 ML IV ONE (17:07)
[2020-03-24 17:49] LABS: BASOPHILS % 0.8 % (0.0-2.0); EOSINOPHILS % 0.3 % (0.0-5.0); HEMATOCRIT. 32.4 % (36.0-48.0); HEMOGLOBIN. 10.8 g/dL (12.0-16.0); LYMPHOCYTES % 47.2 % (20.0-50.0); MEAN CORPUSCULAR HEMOGLOBIN 28.7 pg (28.0-32.0); MEAN CORPUSCULAR VOLUME 86.4 fL (81.0-99.0); MEAN PLATELET VOLUME 10.4 fl (7.4-10.4); MONOCYTES % 9.5 % (2.0-8.0); NEUTROPHILS % 42.2 % (40.0-76.0); PLATELET 132 x1000/uL (130-400); RED BLOOD CELL COUNT 3.75 mill/uL (4.2-5.4); RED CELL DISTRIBUTION WIDTH 13.2 % (11.6-14.6)
[2020-03-24 17:54] LABS: CLARITY URINE TURBID (CLEAR); COLOR URINE RED (YELLOW); KETONES URINE NEGATIVE (NEGATIVE); LEUKOCYTE ESTERASE URINE 2+ (NEGATIVE); NITRITE URINE NEGATIVE (NEGATIVE); OCCULT BLOOD URINE 3+ (NEGATIVE); PROTEIN URINE 2+ (NEGATIVE); SPECIFIC GRAVITY URINE 1.022 (1.005-1.030); UROBILINOGEN URINE 0.2 E.U./dL (0.2-1.0)
[2020-03-24 17:57] LABS: CHLORIDE 106 mEq/L (98-107)
[2020-03-24 18:08] LABS: B-HCG QUANTITATIVE < 1 mIU/mL (<3)
[2020-03-24 18:10] LABS: INR 0.9; PROTHROMBIN TIME 9.8 sec (9.6-11.0)
[2020-03-24] MEDS ORDERED: CEFAZOLIN 1000MG PREMIX 50 ML IV ONE (18:30)
[2020-03-24 18:32] LABS: *BARBITURATES SCREEN URINE NEGATIVE (NEGATIVE); *BENZODIAZEPINES SCREEN URINE NEGATIVE (NEGATIVE); *COCAINE SCREEN URINE NEGATIVE (NEGATIVE)
[2020-03-24 18:33] LABS: METHADONE URINE SCREEN NEGATIVE (NEGATIVE); OPIATES URINE SCREEN NEGATIVE (NEGATIVE); PHENCYCLIDINE URINE SCREEN NEGATIVE (NEGATIVE)
[2020-03-24 18:44] LABS: *AMPHETAMINES SCREEN URINE PRESUMTIVE POSITIVE (NEGATIVE)
[2020-03-24 18:45] LABS: CANNABINOID URINE SCREEN PRESUMTIVE POSITIVE (NEGATIVE)
[2020-03-24 19:30] VITALS: BP 146/89
== END 2020-03-24 20:57 | disposition home or self-care (01) ==
LOC: ER 16:49
DX: O20.0 Threatened abortion (principal); O23.41 Unspecified infection of urinary tract in pregnancy, first trimester; O99.321 Drug use complicating pregnancy, first trimester; F15.90 Other stimulant use, unspecified, uncomplicated; O26.891 Other specified pregnancy related conditions, first trimester; G40.909 Epilepsy, unspecified, not intractable, without status epilepticus; Z3A.12 12 weeks gestation of pregnancy; Z91.018 Allergy to other foods
CPT/HCPCS: 36415; 76856; 80053; 80305; 81003; 81025; 84702; 85025; 85610; 86850; 86900; 86901; 87077; 87086; 87186; 96365; 99284; J0690; J7030

== ENCOUNTER 2020-04-30 07:37 | Emergency (ER) | payer MEDICAID ==
[~2020-04-30] VITALS: Ht 165.1 cm; Wt 63.5 kg
[2020-04-30] MEDS ORDERED: dilantin (07:45)
[2020-04-30] MEDS ORDERED: MAGNESIUM/ALUMINUM HYDROXIDE/SIMETHICONE 30ML UDC PO STA (08:11)
[2020-04-30] MEDS ORDERED: IBUPROFEN 600MG TABLET PO STA (08:11)
[2020-04-30 08:17] VITALS: BP 119/56
== END 2020-04-30 08:52 | disposition left against medical advice (07) ==
LOC: ER 07:53
DX: R10.33 Periumbilical pain (principal); G40.909 Epilepsy, unspecified, not intractable, without status epilepticus; Z91.018 Allergy to other foods
CPT/HCPCS: 93005; 99283

== ENCOUNTER 2020-11-15 00:54 | Emergency (ER) | payer MEDICAID ==
[~2020-11-15] VITALS: Ht 162.6 cm; Wt 64.0 kg
[~2020-11-15 00:54] MED LIST: dilantin
[2020-11-15] MEDS ORDERED: HYDROCODONE/ACETAMINOPHEN 5/325MG TABLET PO ONE (01:45)
[2020-11-15 02:01] VITALS: BP 142/76
== END 2020-11-15 03:41 | disposition home or self-care (01) ==
LOC: ER 00:54
DX: S06.0X0A Concussion without loss of consciousness, initial encounter (principal); S00.11XA Contusion of right eyelid and periocular area, initial encounter; H11.31 Conjunctival hemorrhage, right eye; G40.909 Epilepsy, unspecified, not intractable, without status epilepticus; F17.210 Nicotine dependence, cigarettes, uncomplicated; Z91.018 Allergy to other foods; Y00.XXXA Assault by blunt object, initial encounter; Y04.0XXA Assault by unarmed brawl or fight, initial encounter; Y07.03 Male partner, perpetrator of maltreatment and neglect; Y93.89 Activity, other specified; Y92.018 Other place in single-family (private) house as the place of occurrence of the external cause
CPT/HCPCS: 70486; 81025; 99285

== ENCOUNTER 2020-12-02 21:19 | Emergency (ER) | payer MEDICAID ==
[~2020-12-02] VITALS: Ht 167.6 cm; Wt 54.0 kg
[2020-12-02 21:33] VITALS: BP 116/76
[2020-12-02 22:37] LABS: CLARITY URINE CLOUDY (CLEAR); COLOR URINE YELLOW (YELLOW); KETONES URINE TRACE (NEGATIVE); LEUKOCYTE ESTERASE URINE 2+ (NEGATIVE); NITRITE URINE NEGATIVE (NEGATIVE); OCCULT BLOOD URINE 1+ (NEGATIVE); PH URINE 5.5 (4.5-8.0); PROTEIN URINE NEGATIVE (NEGATIVE); SPECIFIC GRAVITY URINE 1.033 (1.005-1.030)
[2020-12-02] MEDS ORDERED: CEFD300C3 MT (23:18)
[2020-12-02] MEDS ORDERED: CLIN300C12 PO (23:19)
== END 2020-12-02 23:40 | disposition home or self-care (01) ==
LOC: ER 21:19
DX: N75.1 Abscess of Bartholin's gland (principal); N39.0 Urinary tract infection, site not specified; Z91.018 Allergy to other foods; Z79.899 Other long term (current) drug therapy
CPT/HCPCS: 81003; 81025; 99283

== ENCOUNTER 2020-12-06 13:23 | Emergency (ER) | payer MEDICAID ==
[~2020-12-06] VITALS: Ht 152.4 cm; Wt 60.0 kg
[~2020-12-06 13:23] MED LIST changes: +CEFD300C3 MT; +CLIN300C12 PO
[2020-12-06 13:44] VITALS: BP 132/94
== END 2020-12-06 14:24 | disposition left against medical advice (07) ==
LOC: ER 13:23
DX: Z53.21 Procedure and treatment not carried out due to patient leaving prior to being seen by health care provider (principal)

== ENCOUNTER 2021-05-29 23:37 | Emergency (ER) | payer SELFPAY ==
[~2021-05-29] VITALS: Ht 162.6 cm; Wt 64.0 kg
[2021-05-30] MEDS ORDERED: PANTOPRAZOLE SODIUM 40 MG/VIAL IV STA (00:16)
[2021-05-30] MEDS ORDERED: ONDANSETRON HCL 4MG/2ML INJ IV STA (00:16)
[2021-05-30] MEDS ORDERED: SODIUM CHLORIDE 0.9% 1,000 ML IV ONE (00:30)
[2021-05-30] MEDS ORDERED: PHENYTOIN SODIUM EXTENDED 100MG CAPSULE PO ONE (00:30)
[2021-05-30 00:38] LABS: BASOPHILS % 0.7 % (0.0-2.0); EOSINOPHILS % 0.7 % (0.0-5.0); HEMATOCRIT. 31.7 % (36.0-48.0); HEMOGLOBIN. 10.5 g/dL (12.0-16.0); LYMPHOCYTES % 33.6 % (20.0-50.0); MEAN CORPUSCULAR HEMOGLOBIN 27.5 pg (28.0-32.0); MEAN CORPUSCULAR VOLUME 83.1 fL (81.0-99.0); MEAN PLATELET VOLUME 9.8 fl (7.4-10.4); MONOCYTES % 6.3 % (2.0-8.0); NEUTROPHILS % 58.7 % (40.0-76.0); PLATELET 170 x1000/uL (130-400); RED BLOOD CELL COUNT 3.81 mill/uL (4.2-5.4); RED CELL DISTRIBUTION WIDTH 14.3 % (11.6-14.6)
[2021-05-30 00:46] LABS: CHLORIDE 106 mEq/L (98-107)
[2021-05-30 01:31] LABS: HCG SCREEN NEGATIVE
[2021-05-30 01:35] LABS: INR 0.9; PROTHROMBIN TIME 10.1 sec (9.6-11.0)
[2021-05-30 01:53] LABS: CLARITY URINE TURBID (CLEAR); COLOR URINE RED (YELLOW); KETONES URINE NEGATIVE (NEGATIVE); LEUKOCYTE ESTERASE URINE 1+ (NEGATIVE); NITRITE URINE NEGATIVE (NEGATIVE); OCCULT BLOOD URINE 3+ (NEGATIVE); PH URINE 6.5 (4.5-8.0); PROTEIN URINE 2+ (NEGATIVE); SPECIFIC GRAVITY URINE 1.027 (1.005-1.030)
[2021-05-30] MEDS ORDERED: CEPH500C2 MT (05:51)
[2021-05-30] MEDS ORDERED: PHEN200C5 MT (05:51)
[2021-05-30] MEDS ORDERED: QUET200T MT (05:52)
[2021-05-30 06:32] VITALS: BP 142/76
== END 2021-05-30 06:34 | disposition home or self-care (01) ==
LOC: ER 23:37
DX: N39.0 Urinary tract infection, site not specified (principal); R56.9 Unspecified convulsions; Z91.018 Allergy to other foods
CPT/HCPCS: 36415; 74176; 80053; 81003; 81025; 83690; 84703; 85025; 85610; 93005; 96374; 96375; 99285; C9113; J2405; J7030

== ENCOUNTER 2021-06-23 07:36 | Emergency (ER) | payer MEDICAID ==
[~2021-06-23] VITALS: Ht 162.6 cm; Wt 64.0 kg
[~2021-06-23 07:36] MED LIST changes: +CEPH500C2 MT; +PHEN200C5 MT; +QUET200T MT
[2021-06-23] MEDS ORDERED: FAMOTIDINE 20MG/2ML VIAL IV ONE (08:30)
[2021-06-23] MEDS ORDERED: ONDANSETRON HCL 4MG/2ML INJ IV ONE (08:30)
[2021-06-23] MEDS ORDERED: SODIUM CHLORIDE 0.9% 1,000 ML IV ONE (08:30)
[2021-06-23 09:06] LABS: BASOPHILS % 0.6 % (0.0-2.0); EOSINOPHILS % 0.8 % (0.0-5.0); HEMATOCRIT. 34.4 % (36.0-48.0); HEMOGLOBIN. 11.5 g/dL (12.0-16.0); LYMPHOCYTES % 40.3 % (20.0-50.0); MEAN CORPUSCULAR HEMOGLOBIN 27.5 pg (28.0-32.0); MEAN CORPUSCULAR VOLUME 82.3 fL (81.0-99.0); MEAN PLATELET VOLUME 10.5 fl (7.4-10.4); MONOCYTES % 5.1 % (2.0-8.0); NEUTROPHILS % 53.2 % (40.0-76.0); PLATELET 169 x1000/uL (130-400); RED BLOOD CELL COUNT 4.17 mill/uL (4.2-5.4); RED CELL DISTRIBUTION WIDTH 15.4 % (11.6-14.6)
[2021-06-23 09:11] LABS: CHLORIDE 104 mEq/L (98-107)
[2021-06-23 09:22] LABS: B-HCG QUANTITATIVE < 1 mIU/mL (<3)
[2021-06-23 11:13] LABS: CLARITY URINE CLEAR (CLEAR); COLOR URINE RED (YELLOW); KETONES URINE NEGATIVE (NEGATIVE); LEUKOCYTE ESTERASE URINE TRACE (NEGATIVE); NITRITE URINE NEGATIVE (NEGATIVE); OCCULT BLOOD URINE 3+ (NEGATIVE); PH URINE 7.5 (4.5-8.0); PROTEIN URINE 1+ (NEGATIVE); SPECIFIC GRAVITY URINE 1.014 (1.005-1.030)
[2021-06-23] MEDS ORDERED: METRONIDAZOLE 500MG TABLET PO ONE (12:00)
[2021-06-23] MEDS ORDERED: MEDROXYPROGESTERONE ACETATE 150MG/ML VIAL IM ONE (12:00)
[2021-06-23 12:22] VITALS: BP 136/88
== END 2021-06-23 12:25 | disposition home or self-care (01) ==
LOC: ER 07:36
DX: N93.9 Abnormal uterine and vaginal bleeding, unspecified (principal); A59.9 Trichomoniasis, unspecified; F12.10 Cannabis abuse, uncomplicated; Z79.899 Other long term (current) drug therapy
CPT/HCPCS: 36415; 76856; 80053; 81003; 81025; 84702; 85025; 86850; 86900; 86901; 96361; 96372; 96374; 96375; 99284; J1050; J2405; J3490; J7030

== ENCOUNTER 2021-08-07 11:07 | Emergency (ER) | payer MEDICAID ==
[~2021-08-07] VITALS: Ht 162.6 cm; Wt 55.0 kg
[2021-08-07 11:12] VITALS: BP 138/91
[2021-08-07] MEDS ORDERED: ONDANSETRON HCL 4MG/2ML INJ IV STA (12:12)
[2021-08-07] MEDS ORDERED: SODIUM CHLORIDE 0.9% 1,000 ML IV ONE (12:15)
== END 2021-08-07 16:47 | disposition left against medical advice (07) ==
LOC: ER 11:16
DX: R11.2 Nausea with vomiting, unspecified (principal)
CPT/HCPCS: 99283; J7030

== ENCOUNTER 2021-10-05 10:59 | Inpatient (IN) | payer MEDICAID ==
[~2021-10-05] VITALS: Ht 162.6 cm; Wt 65.8 kg
[2021-10-05] MEDS ORDERED: ASPIRIN 81MG TABLET PO ONE (12:00)
[2021-10-05] MEDS: NITROGLYCERIN 0.4MG TABLET SL SL PRN ×2 (12:04→12:22)
[2021-10-05 12:35] LABS: HEMATOCRIT. 34.8 % (36.0-48.0); HEMOGLOBIN. 11.7 g/dL (12.0-16.0); MEAN CORPUSCULAR HEMOGLOBIN 28.6 pg (28.0-32.0); MEAN CORPUSCULAR VOLUME 85.4 fL (81.0-99.0); MEAN PLATELET VOLUME 10.5 fl (7.4-10.4); PLATELET 129 x1000/uL (130-400); RED BLOOD CELL COUNT 4.08 mill/uL (4.2-5.4); RED CELL DISTRIBUTION WIDTH 12.9 % (11.6-14.6)
[2021-10-05 12:37] LABS: CHLORIDE 105 mEq/L (98-107)
[2021-10-05 12:54] LABS: HCG SCREEN NEGATIVE
[2021-10-05 13:12] LABS: PLATELET ESTIMATE SLIGHTLY DECREASED
[2021-10-05] MEDS ORDERED: IBUPROFEN 400MG TABLET PO ONE (14:45)
[2021-10-05 16:15] VITALS: BP 141/74
[2021-10-05 16:45] VITALS: BP 137/74
[2021-10-05 20:00] VITALS: BP 155/98
[2021-10-05] MEDS ORDERED: QUETIAPINE FUMARATE 50MG TABLET PO SCH (21:00)
[2021-10-05] MEDS ORDERED: PHENYTOIN SODIUM EXTENDED 100MG CAPSULE PO SCH (21:00)
[2021-10-06] VITALS: BP 104/58
[2021-10-06 04:00] VITALS: BP 105/63
[2021-10-06 08:00] VITALS: BP 121/88
[2021-10-06] MEDS ORDERED: ONDANSETRON HCL 4MG/2ML INJ IV PRN (09:45)
[2021-10-06] MEDS ORDERED: ACETAMINOPHEN 325MG TABLET PO PRN (09:45)
[2021-10-06] MEDS ORDERED: CEFTRIAXONE 1,000 MG in DEXTROSE 5% WATER 50 ML IV SCH (11:00)
[2021-10-06 12:00] VITALS: BP 100/62
[2021-10-06 16:00] VITALS: BP 119/77
[2021-10-06 17:04] VITALS: BP 115/69
== END 2021-10-06 17:57 | disposition home or self-care (01) | DRG 137 ==
LOC: ER 11:07 → 7WST 14:45 → ENRESERV 15:49 → 7WST 17:15
PROVIDERS: ADMIT Internal Medicine; ATTEND Internal Medicine
DX: U07.1 COVID-19 (principal); D61.818 Other pancytopenia; R07.9 Chest pain, unspecified; G40.909 Epilepsy, unspecified, not intractable, without status epilepticus; Z91.018 Allergy to other foods
CPT/HCPCS: 36415; 71045; 80053; 83880; 84484; 84703; 85025; 87426; 93005; 99285; J0696; J7060

== ENCOUNTER 2021-10-11 06:48 | Emergency (ER) | payer MEDICAID ==
[~2021-10-11] VITALS: Ht 162.6 cm; Wt 60.0 kg
[~2021-10-11 06:48] MED LIST changes: -CEFD300C3 MT; -CEPH500C2 MT; -CLIN300C12 PO; -dilantin
[2021-10-11] MEDS ORDERED: ALBU6.7H9 INH (07:51)
[2021-10-11 08:17] VITALS: BP 134/72
== END 2021-10-11 08:20 | disposition home or self-care (01) ==
LOC: ER 06:48
DX: U07.1 COVID-19 (principal); R05.9 Cough, unspecified; R11.10 Vomiting, unspecified; F17.290 Nicotine dependence, other tobacco product, uncomplicated; I49.9 Cardiac arrhythmia, unspecified
CPT/HCPCS: 71045; 93005; 99283; 99406

== ENCOUNTER 2021-10-22 13:55 | Emergency (ER) | payer MEDICAID ==
[~2021-10-22] VITALS: Ht 172.7 cm; Wt 64.0 kg
[~2021-10-22 13:55] MED LIST changes: +ALBU6.7H9 INH
[2021-10-22] MEDS ORDERED: TOPUD MT (15:20)
[2021-10-22] MEDS ORDERED: GUAI-996 MT (15:20)
[2021-10-22] MEDS ORDERED: GUAIFENESIN 200MG/10ML SUGAR FREE UDC PO NR (15:30)
[2021-10-22] MEDS ORDERED: ACETAMINOPHEN 325MG TABLET PO NR (15:30)
[2021-10-22 16:00] VITALS: BP 129/84
== END 2021-10-22 16:02 | disposition home or self-care (01) ==
LOC: ER 14:01
DX: B34.9 Viral infection, unspecified (principal)
CPT/HCPCS: 81025; 99283

== ENCOUNTER 2021-11-11 12:21 | Emergency (ER) | payer MEDICAID ==
[~2021-11-11] VITALS: Ht 165.1 cm; Wt 67.0 kg
[~2021-11-11 12:21] MED LIST changes: +GUAI-996 MT; +TOPUD MT
[2021-11-11 12:36] VITALS: BP 129/68
[2021-11-11] MEDS ORDERED: PHEN100C4 MT (13:19)
== END 2021-11-11 15:41 | disposition home or self-care (01) ==
LOC: ER 12:21
DX: Z76.0 Encounter for issue of repeat prescription (principal); G40.909 Epilepsy, unspecified, not intractable, without status epilepticus
CPT/HCPCS: 99283

== ENCOUNTER 2021-12-16 13:19 | Emergency (ER) | payer MEDICAID ==
[~2021-12-16] VITALS: Ht 167.6 cm; Wt 62.0 kg
[~2021-12-16 13:19] MED LIST changes: +PHEN100C4 MT
[2021-12-16] MEDS ORDERED: MORPHINE SULFATE 4 MG/ML CPJ (NOT FOR IM USE) IV STA ×2 (13:39→19:15)
[2021-12-16] MEDS ORDERED: ONDANSETRON HCL 4MG/2ML INJ IV STA ×2 (13:39→19:15)
[2021-12-16] MEDS ORDERED: SODIUM CHLORIDE 0.9% 1,000 ML IV ONE (13:45)
[2021-12-16 14:19] LABS: CLARITY URINE CLEAR (CLEAR); COLOR URINE YELLOW (YELLOW); KETONES URINE NEGATIVE (NEGATIVE); LEUKOCYTE ESTERASE URINE NEGATIVE (NEGATIVE); NITRITE URINE NEGATIVE (NEGATIVE); OCCULT BLOOD URINE NEGATIVE (NEGATIVE); PROTEIN URINE NEGATIVE (NEGATIVE); SPECIFIC GRAVITY URINE 1.023 (1.005-1.030)
[2021-12-16 14:20] LABS: BASOPHILS % 0.4 % (0.0-2.0); EOSINOPHILS % 0.2 % (0.0-5.0); HEMOGLOBIN. 10.6 g/dL (12.0-16.0); LYMPHOCYTES % 37.2 % (20.0-50.0); MEAN CORPUSCULAR VOLUME 84.7 fL (81.0-99.0); MEAN PLATELET VOLUME 9.4 fl (7.4-10.4); MONOCYTES % 7.6 % (2.0-8.0); NEUTROPHILS % 54.6 % (40.0-76.0); PLATELET 197 x1000/uL (130-400); RED BLOOD CELL COUNT 3.78 mill/uL (4.2-5.4); RED CELL DISTRIBUTION WIDTH 13.1 % (11.6-14.6)
[2021-12-16 14:23] LABS: CHLORIDE 104 mEq/L (98-107)
[2021-12-16 14:25] VITALS: BP 128/88
[2021-12-16 14:31] LABS: HCG SCREEN NEGATIVE
[2021-12-16] MEDS ORDERED: POTASSIUM CHLORIDE 20MEQ TABLET SR PO ONE (16:15)
[2021-12-16] MEDS ORDERED: CEFTRIAXONE 500 MG in DEXTROSE 5% WATER 25 ML IV ONE (19:15)
[2021-12-16] MEDS ORDERED: DOXYCYCLINE HYCLATE 100 MG/VIAL IV ONE (19:15)
[2021-12-16] MEDS ORDERED: METRONIDAZOLE 500MG TABLET PO ONE (19:15)
[2021-12-16] MEDS ORDERED: DOXYCYCLINE 100MG in DEXTROSE 5% WATER 100ML IV NR (19:30)
[2021-12-19 04:08] LABS: NEISSERIA GONORRHOEAE NAA Negative (Negative)
== END 2021-12-16 19:49 | disposition left against medical advice (07) ==
LOC: ER 13:19 → CANBEDREQ 21:04
DX: N73.9 Female pelvic inflammatory disease, unspecified (principal); N70.91 Salpingitis, unspecified; D39.0 Neoplasm of uncertain behavior of uterus; D64.9 Anemia, unspecified; Z91.018 Allergy to other foods
CPT/HCPCS: 36415; 74176; 76856; 80053; 81003; 81025; 83690; 84703; 85025; 87491; 87591; 93005; 93976; 96374; 96375; 99285; J0696; J2270; J2405; J3490; J7030; J7060

== ENCOUNTER 2024-07-04 13:19 | Emergency (ER) | payer MEDICAID ==
[~2024-07-04] VITALS: Ht 162.6 cm; Wt 78.9 kg
[~2024-07-04 13:19] MED LIST changes: +ALBU6.7H3 INH; -ALBU6.7H9 INH; +NAPR220C61 MT; +ONDA-239 PO; +PHEN-434 PO; +QUET25TA PO
[2024-07-04 13:26] VITALS: TEMP 98.3; O2SAT 98
[2024-07-04 14:50] LABS: BASOPHILS % 0.3 % (0.0-2.0); EOSINOPHILS % 0.2 % (0.0-5.0); HEMATOCRIT. 34.4 % (36.0-48.0); HEMOGLOBIN. 11.2 g/dL (12.0-16.0); LYMPHOCYTES % 26.7 % (20.0-50.0); MEAN CORPUSCULAR HEMOGLOBIN 28.5 pg (28.0-32.0); MEAN CORPUSCULAR HGB CONC 32.6 g/dL (31.0-37.0); MEAN CORPUSCULAR VOLUME 87.4 fL (81.0-99.0); MEAN PLATELET VOLUME 9.4 fl (7.4-10.4); MONOCYTES % 6.6 % (2.0-8.0); NEUTROPHILS % 66.2 % (40.0-76.0); PLATELET 209 x1000/uL (130-400); RED BLOOD CELL COUNT 3.94 mill/uL (4.2-5.4); RED CELL DISTRIBUTION WIDTH 13.6 % (11.6-14.6); WHITE BLOOD COUNT 5.8 x1000/uL (4.5-11.0)
[2024-07-04 15:03] LABS: CHLORIDE 101 mEq/L (98-107); POTASSIUM 3.3 mEq/L (3.5-5.1); SODIUM 136 mEq/L (136-145)
[2024-07-04 15:04] LABS: CALCIUM 9.9 mg/dL (8.7-10.4); CARBON DIOXIDE 29 mEq/L (21-32)
[2024-07-04 15:09] LABS: GLUCOSE 100 mg/dL (70-105); UREA NITROGEN BLOOD 17 mg/dL (9-23)
[2024-07-04 15:11] LABS: ALANINE AMINOTRANSFERASE 13 IU/L (10-49); ALBUMIN 4.4 g/dL (3.2-4.8); ASPARTATE AMINOTRANSFERASE 18 IU/L (<34); BILIRUBIN TOTAL 0.3 mg/dL (0.1-1.0)
[2024-07-04 15:21] LABS: BILIRUBIN DIRECT < 0.1 mg/dL (<=3.0)
[2024-07-04 15:42] VITALS: BP 106/62; PULSE 84; RESP 18
[2024-07-04] MEDS: ONDANSETRON 4MG ODT PO ONE (15:42)
[2024-07-04] MEDS: HYDROCODONE/ACETAMINOPHEN 10/325MG TABLET PO ONE (15:42)
[2024-07-04] MEDS: POTASSIUM CHLORIDE 20MEQ TABLET SR PO NR (15:42)
[2024-07-04 17:26] LABS: HCG SCREEN NEGATIVE
== END 2024-07-04 17:53 | disposition home or self-care (01) ==
LOC: ER 13:19
DX: R10.84 Generalized abdominal pain (principal); R11.2 Nausea with vomiting, unspecified; Z79.899 Other long term (current) drug therapy; Z91.018 Allergy to other foods
CPT/HCPCS: 99284; 80076; 80048; 84703; 83690; 85025; 36415; Q0162

== ENCOUNTER 2024-07-09 10:42 | Emergency (ER) | payer MEDICAID ==
[~2024-07-09] VITALS: Ht 162.6 cm; Wt 79.0 kg
[2024-07-09 10:46] VITALS: O2SAT 99
[2024-07-09 10:53] VITALS: BP 163/85; PULSE 80; RESP 18; TEMP 98.7; O2SAT 99
[2024-07-09 11:35] LABS: BASOPHILS % 0.6 % (0.0-2.0); DIFFERENTIAL COMMENT 0; EOSINOPHILS % 0.4 % (0.0-5.0); HEMATOCRIT. 34.6 % (36.0-48.0); HEMOGLOBIN. 11.1 g/dL (12.0-16.0); LYMPHOCYTES % 40.2 % (20.0-50.0); MEAN CORPUSCULAR HEMOGLOBIN 27.9 pg (28.0-32.0); MEAN CORPUSCULAR HGB CONC 32.2 g/dL (31.0-37.0); MEAN CORPUSCULAR VOLUME 86.8 fL (81.0-99.0); MEAN PLATELET VOLUME 9.9 fl (7.4-10.4); MONOCYTES % 6.6 % (2.0-8.0); NEUTROPHILS % 52.2 % (40.0-76.0); PLATELET 224 x1000/uL (130-400); RED BLOOD CELL COUNT 3.98 mill/uL (4.2-5.4); RED CELL DISTRIBUTION WIDTH 13.9 % (11.6-14.6); WHITE BLOOD COUNT 3.4 x1000/uL (4.5-11.0)
[2024-07-09] MEDS: ONDANSETRON 4MG ODT PO ONE (11:36)
[2024-07-09] MEDS: IBUPROFEN 600MG TABLET PO ONE (11:37)
[2024-07-09 11:47] LABS: CHLORIDE 104 mEq/L (98-107); POTASSIUM 3.7 mEq/L (3.5-5.1); SODIUM 137 mEq/L (136-145)
[2024-07-09 11:48] LABS: CALCIUM 9.2 mg/dL (8.7-10.4); CARBON DIOXIDE 29 mEq/L (21-32)
[2024-07-09 11:53] LABS: CREATININE 0.9 mg/dL (0.6-1.0); GLUCOSE 81 mg/dL (70-105); UREA NITROGEN BLOOD 12 mg/dL (9-23)
[2024-07-09 12:11] LABS: B-HCG QUANTITATIVE < 1 mIU/mL (<3)
[2024-07-09 12:29] LABS: CLARITY URINE TURBID (CLEAR); COLOR URINE RED (YELLOW); GLUCOSE URINE NEGATIVE (NEGATIVE); KETONES URINE NEGATIVE (NEGATIVE); LEUKOCYTE ESTERASE URINE 2+ (NEGATIVE); NITRITE URINE POSITIVE (NEGATIVE); OCCULT BLOOD URINE 2+ (NEGATIVE); PROTEIN URINE 2+ (NEGATIVE)
[2024-07-09] MEDS ORDERED: ONDA-239 PO (12:52)
[2024-07-09] MEDS ORDERED: CEPH500T MT (12:52)
[2024-07-09] MEDS ORDERED: IBUP-2029 MT (12:52)
[2024-07-09] MEDS ORDERED: FERR324T4 MT (12:53)
[2024-07-09 13:11] LABS: BACTERIA URINE 1+; RBC URINE TNTC /hpf (0-2); SQUAMOUS EPITHELIAL CELL URINE 1+ /lpf (RARE/1+); WBC URINE 25-50 /hpf (0-2); YEAST URINE NONE SEEN
== END 2024-07-09 13:09 | disposition home or self-care (01) ==
LOC: ER 10:58
DX: N39.0 Urinary tract infection, site not specified (principal); R51.9 Headache, unspecified; N93.9 Abnormal uterine and vaginal bleeding, unspecified; Z79.899 Other long term (current) drug therapy
CPT/HCPCS: 99284; 80048; 81003; 84702; 85025; 86850; 86900; 86901; 87086; 36415; 93005; Q0162

== ENCOUNTER 2024-09-30 12:31 | Emergency (ER) | payer MEDICAID ==
[~2024-09-30] VITALS: Ht 167.6 cm; Wt 65.7 kg
[~2024-09-30 12:31] MED LIST changes: +CEPH500T MT; +FERR324T4 MT; +IBUP-2029 MT
[2024-09-30 12:34] VITALS: O2SAT 99
[2024-09-30 13:05] VITALS: BP 118/72; PULSE 93; RESP 16; TEMP 98.3; O2SAT 97
[2024-09-30 13:55] LABS: BASOPHILS % 0.6 % (0.0-2.0); EOSINOPHILS % 0.6 % (0.0-5.0); HEMOGLOBIN. 10.8 g/dL (12.0-16.0); LYMPHOCYTES % 45.5 % (20.0-50.0); MEAN CORPUSCULAR HEMOGLOBIN 28.8 pg (28.0-32.0); MEAN CORPUSCULAR HGB CONC 32.8 g/dL (31.0-37.0); MEAN CORPUSCULAR VOLUME 87.9 fL (81.0-99.0); MEAN PLATELET VOLUME 10.2 fl (7.4-10.4); MONOCYTES % 7.7 % (2.0-8.0); NEUTROPHILS % 45.6 % (40.0-76.0); PLATELET 187 x1000/uL (130-400); RED BLOOD CELL COUNT 3.76 mill/uL (4.2-5.4); RED CELL DISTRIBUTION WIDTH 14.5 % (11.6-14.6); WHITE BLOOD COUNT 3.7 x1000/uL (4.5-11.0)
[2024-09-30 14:15] LABS: CHLORIDE 105 mEq/L (98-107); POTASSIUM 3.6 mEq/L (3.5-5.1); SODIUM 139 mEq/L (136-145)
[2024-09-30 14:16] LABS: CALCIUM 9.2 mg/dL (8.7-10.4); CARBON DIOXIDE 26 mEq/L (21-32)
[2024-09-30 14:21] LABS: CREATININE 0.9 mg/dL (0.6-1.0); GLUCOSE 112 mg/dL (70-105); UREA NITROGEN BLOOD 12 mg/dL (9-23)
[2024-09-30 14:29] LABS: PHENYTOIN < 2.0 ug/mL (10-20)
[2024-09-30] MEDS: PHENYTOIN SODIUM EXTENDED 100MG CAPSULE PO NR (16:16)
== END 2024-09-30 16:30 | disposition home or self-care (01) ==
LOC: ER 12:31
DX: G40.909 Epilepsy, unspecified, not intractable, without status epilepticus (principal); D64.9 Anemia, unspecified; Z91.148 Patient's other noncompliance with medication regimen for other reason; Z79.899 Other long term (current) drug therapy; Z91.018 Allergy to other foods
CPT/HCPCS: 36415; 80048; 80185; 85025; 93005; 99284

== ENCOUNTER 2025-08-04 08:18 | Emergency (ER) | payer MEDICAID ==
[~2025-08-04] VITALS: Ht 162.6 cm; Wt 77.0 kg
[~2025-08-04 08:18] MED LIST changes: +IBUP-1455 MT; -IBUP-2029 MT
[2025-08-04 08:35] VITALS: O2SAT 99
[2025-08-04] MEDS: PREDNISONE 20MG TABLET PO ONE (09:18)
[2025-08-04] MEDS: AZITHROMYCIN 500 MG TABLET PO ONE (09:18)
[2025-08-04 09:25] LABS: BASOPHILS % 0.3 % (0.0-2.0); EOSINOPHILS % 0.2 % (0.0-5.0); HEMATOCRIT. 35.8 % (36.0-48.0); HEMOGLOBIN. 11.7 g/dL (12.0-16.0); LYMPHOCYTES % 16.1 % (20.0-50.0); MEAN PLATELET VOLUME 9.5 fl (7.4-10.4); MONOCYTES % 6.2 % (2.0-8.0); NEUTROPHILS % 77.2 % (40.0-76.0); PLATELET 178 x1000/uL (130-400); RED BLOOD CELL COUNT 4.21 mill/uL (4.2-5.4); RED CELL DISTRIBUTION WIDTH 13.9 % (11.6-14.6)
[2025-08-04 09:40] LABS: CREATININE 0.8 mg/dL (0.6-1.0); UREA NITROGEN BLOOD 9 mg/dL (9-23)
[2025-08-04 09:41] LABS: TROPONIN I HIGH SENSITIVITY < 4 ng/L (3.0-34)
[2025-08-04] MEDS: IPRATROPIUM BROMIDE (0.02%) 0.5MG/2.5ML NEB HHN ONE (09:52)
[2025-08-04] MEDS: ALBUTEROL (0.083%) 2.5MG/3ML NEB HHN ONE (09:53)
[2025-08-04 09:56] VITALS: RESP 20; O2SAT 97
[2025-08-04] MEDS: HYDROCODONE/ACETAMINOPHEN 5/325MG TABLET PO ONE (10:26)
[2025-08-04] MEDS: ONDANSETRON 4MG ODT PO ONE (10:52)
[2025-08-04] MEDS ORDERED: ONDA-239 PO (12:29)
[2025-08-04] MEDS ORDERED: P50 MT (12:29)
[2025-08-04] MEDS ORDERED: DOXY100T2 MT (12:29)
[2025-08-04 13:23] VITALS: BP 150/95; PULSE 88; RESP 17; TEMP 36.9; O2SAT 99
== END 2025-08-04 13:24 | disposition home or self-care (01) ==
LOC: ER 08:18
DX: J45.901 Unspecified asthma with (acute) exacerbation (principal); R11.2 Nausea with vomiting, unspecified; I10 Essential (primary) hypertension; Z91.018 Allergy to other foods; Z79.899 Other long term (current) drug therapy
CPT/HCPCS: 80048; 83880; 83735; 85025; 84484; 36415; 71045; 94640; 93005; 99285; Q0162; J7512; Z7610 ×3; 94070